=== PATIENT | female | born 1940 | race Caucasian/White ===

== ENCOUNTER 2016-05-22 06:28 | Day surgery (SDC) | payer MEDICARE, BC ==
[~2016-05-22 06:28] MED LIST: DEXAMETHASONE SOD PHOSPHATE 10 MG/ML 1 ML VIAL IV ONE; HEPARIN SODIUM,PORCINE 5,000 UNIT/ML 1 ML VIAL SQ ONE; LACTATED RINGERS 1,000 ML IV SCH; ceFAZolin 2 GM in SODIUM CHLORIDE 0.9% 100 ML IVPB ONE
[2016-05-22 07:12] LABS: Glucose,Whole Blood 219 mg/dL (75-99)
[2016-05-22] MEDS ORDERED: BUPIVACAIN-EPI 0.25%-1:200,000 30 ML VIAL SQ ONE ×2 (07:12→09:37)
[2016-05-22] MEDS ORDERED: LIDOCAINE 1% 20 ML VIAL (10MG/ML) FOR IV START INTRADERMA ONE (07:14)
[2016-05-22] MEDS: ONDANSETRON 4 MG/2 ML VIAL IVP ONE ×2 (07:14→10:16)
[2016-05-22 07:22] LABS: Prothrombin Time 10.6 sec (9.0-12.0)
[2016-05-22] MEDS ORDERED: INSULIN LISPRO (humaLOG) 300 UNIT/3 ML VIAL SQ ONE ×3 (07:40→13:56)
[2016-05-22] MEDS ORDERED: KETOROLAC 30 MG/ML 1 ML VIAL ONE (09:21)
[2016-05-22] MEDS ORDERED: HYDROmorphone (PF) 1 MG/ML ONE (09:21)
[2016-05-22] MEDS ORDERED: MIDAZOLAM 2 MG/2 ML VIAL ONE (09:21)
[2016-05-22] MEDS ORDERED: LIDOCAINE 1% INJ 10MG/ML (20 ML MDV) ONE (09:21)
[2016-05-22] MEDS ORDERED: PROPOFOL 10 MG/ML 20 ML VIAL IV ONE (09:21)
[2016-05-22] MEDS ORDERED: SUCCINYLCHOLINE CHLORIDE 100 MG/5 ML SYR IV ONE (09:21)
[2016-05-22] MEDS ORDERED: ROCURONIUM BROMIDE 10 MG/ML 10 ML VIAL IV ONE (09:21)
[2016-05-22] MEDS ORDERED: fentaNYL (PF) 50 MCG/ML 2 ML AMP ONE (09:21)
--- NOTE | 2016-05-22 09:23 | P.GSHP ---
History of Present Illness H&P Date: 05/22/16 Chief Complaint: Right upper quadrant pain Cyst 76-year-old female referred from Dr. Wislon. Patient complaints of right quadrant pain. Her recent HIDA scan shows abnormal ejection fraction 80% consistent with biliary hyperkinesia. She presents today for laparoscopic cholecystectomy. 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 Hx. cardiac arrest 4 yrs ago at [facility]- here with lung infection. CVA - pt unsure of cause - denies residual effects of cva. Hx Factor V. - on warfarin. Gout History of Any Multi-Drug Resistant Organisms: None Reported Past Surgical History: Hysterectomy Additional Past Surgical History / Comment(s): Nasal surgery Past Anesthesia/Blood Transfusion Reactions: Motion Sickness Past Psychological History: No Psychological Hx Reported Smoking Status: Former smoker Past Alcohol Use History: None Reported, Occasional Additional Past Alcohol Use History / Comment(s): QUIT SMOKING IN 2002, 50 YRS, 2PPD. Past Drug Use History: None Reported - Past Family History Father Additional Family Medical History / Comment(s): Hx. diabetes, cardiac, -father, mom-cancer, mothers extended family factor A Medications and Allergies Home Medications Medication Instructions Recorded Confirmed Type Febuxostat [Uloric] 40 mg PO HS 01/12/14 05/22/16 History Levimir 34 units SQ HS 01/12/14 05/22/16 History Metoprolol Succinate (ER) [Toprol 100 mg PO HS 01/12/14 05/22/16 History XL] Olmesartan/Amlodipin/Hcthiazid 1 tab PO HS 01/12/14 05/22/16 History [Tribenzor 20-5-12.5 mg Tablet] Simvastatin [Zocor] 40 mg PO HS 01/12/14 05/22/16 History Insulin Lispro [humaLOG Kwikpen] 16 units SQ TID-W/MEALS 06/30/14 05/22/16 History Warfarin Sodium [Coumadin] 3 mg PO DAILY 11/15/15 05/22/16 History Rituxan Dose Unknown 1 dose IV Q120D PRN 03/31/16 05/22/16 History Enoxaparin [Lovenox] 40 mg SQ DAILY 05/22/16 05/22/16 History Allergies Allergy/AdvReac Type Severity Reaction Status Date / Time codeine Allergy Severe Unknown Verified 05/22/16 07:12 levofloxacin [From Levaquin] Allergy Severe Rash/Hives Verified 05/22/16 07:12 metronidazole [From Flagyl] Allergy Severe Anaphylaxis Verified 05/22/16 07:12 diphenoxylate [From Lomotil] Allergy Diarrhea Verified 05/22/16 07:12 Surgical - Exam Vital Signs Temp Pulse Resp BP Pulse Ox 97.9 F 69 18 140/78 96 05/22/16 07:09 05/22/16 07:09 05/22/16 07:09 05/22/16 07:09 05/22/16 07:09 - General well developed, no distress - Eyes PERRL - ENT normal pinna - Neck no masses - Respiratory normal expansion - Cardiovascular Rhythm: regular - Abdomen Abdomen: soft, non tender Results - Labs Abnormal Lab Results - Last 24 Hours (Table) 05/22/16 Range/Units 06:56 POC Glucose (mg/dL) 219 H (75-99) mg/dL Assessment and Plan Plan: Biliary hyperkinesia Chronic cholecystitis We'll perform laparoscopic cholecystectomy.
--- NOTE | 2016-05-22 09:59 | P.OP ---
Date of Procedure: 05/22/16 Preoperative Diagnosis: Cholecystitis Postoperative Diagnosis: Cholecystitis Procedure(s) Performed: Laparoscopic cholecystectomy Anesthesia: MORRIS Surgeon: Doron Alvarez Estimated Blood Loss (ml): 5 Pathology: other (Gallbladder) Condition: stable Disposition: PACU Description of Procedure: MThe patient was placed on the operating table. The patient received a general endotracheal tube anesthesia. The patients abdomen was prepped and draped in the usual sterile fashion. Through an infraumbilical stab incision , the fascia of the anterior abdominal wall was grasped with a pair of Kochers and then the Veress needle was placed in the peritoneal cavity. Position of the Veress needle was confirmed with positive drop test. The abdomen was then insufflated. After adequate insufflation, the 10 mm trocar was placed in the peritoneal cavity. Following this the laparoscope was placed in the peritoneal cavity. The patient was placed in the head-up, right side up position and then a 5 mm trocar was placed in the right lateral and right subcostal position under direct visualization. A 8 mm trocar was placed in the epigastric position. The gallbladder was grasped in the fundus and infundibulum. Traction on the gallbladder was placed in the lateral and the cephalad positions. The triangle of Calot was visualized.. The cystic duct was bluntly dissected until the union of the cystic duct and common bile duct was seen. The cystic duct was then divided and sealed with the Harmonic scissors. A PDS Endoloop was then placed throughout the cystic duct stump. The cystic artery divided and sealed with the Harmonic scissors. The gallbladder was then removed from the liver bed using Harmonic scissors. The gallbladder was then extracted through the epigastric port site. Operative field was checked for any bleeding spots and Harmonic scissors was used to coagulate the liver bed. The abdomen was irrigated. The trocars were removed. The skin was closed using interrupted 3-0 Vicryl suture. Dermabond dressing were applied. The patient tolerated the procedure well.earl
[2016-05-22 10:10] VITALS: TEMP 97.2
[2016-05-22] MEDS: HYDROmorphone 1 MG/ML 1 ML SYRINGE IVP PRN ×2 (10:16→10:23)
[2016-05-22 10:29] LABS: Glucose,Whole Blood 227 mg/dL (75-99)
[2016-05-22] MEDS ORDERED: diphenhydrAMINE 50 MG/ML 1 ML VIAL IVP ONE (10:30)
[2016-05-22 10:33] VITALS: RESP 16
[2016-05-22] MEDS ORDERED: HYDROcodone/APAP 7.5-325MG 1 EACH TAB PO ONE (11:48)
[2016-05-22 13:44] VITALS: BP 139/72; PULSE 84
[2016-05-22 13:49] LABS: Glucose,Whole Blood 302 mg/dL (75-99)
== END 2016-05-22 14:32 | disposition home or self-care (01) ==
LOC: OR 06:28
PROVIDERS: ATTEND Surgery
DX: K81.1 Chronic cholecystitis (principal); E11.9 Type 2 diabetes mellitus without complications; E78.5 Hyperlipidemia, unspecified; I10 Essential (primary) hypertension; M06.9 Rheumatoid arthritis, unspecified; Z79.01 Long term (current) use of anticoagulants; Z79.4 Long term (current) use of insulin; Z79.899 Other long term (current) drug therapy; Z88.1 Allergy status to other antibiotic agents; Z88.5 Allergy status to narcotic agent; Z88.8 Allergy status to other drugs, medicaments and biological substances; Z86.73 Personal history of transient ischemic attack (TIA), and cerebral infarction without residual deficits; I25.2 Old myocardial infarction; Z87.891 Personal history of nicotine dependence
CPT/HCPCS: 88304; 85610; 47562; J2250; J1200; J1644; J1100; J0690; J2405; J2001; J3010; J1885; J1170; J0330; J2704

== ENCOUNTER 2016-07-08 22:13 | Emergency (ER) | payer MEDICARE, BC ==
[2016-07-08] MEDS ORDERED: SODIUM CHLORIDE 0.9% 500 ML IV STA (23:18)
[2016-07-08] MEDS ORDERED: SODIUM CHLORIDE 0.9% 1,000 ML IV STA (23:18)
[2016-07-08] MEDS ORDERED: METOCLOPRAMIDE 5 MG/ML 2 ML VIAL IVP STA (23:18)
[2016-07-08] MEDS ORDERED: KETOROLAC 30 MG/ML 1 ML VIAL IVP STA (23:21)
[2016-07-08] MEDS ORDERED: MAGNESIUM SULFATE-D5W PMX 1 GM in DEXTROSE/WATER 1 100ML.BAG IVPB ONE (23:21)
[2016-07-08] MEDS ORDERED: LABETALOL SYRINGE 5 MG/ML IVP STA (23:21)
[2016-07-09 00:06] LABS: Basophils % (A) 1 %; CH 30.4; CHCM 33.8; Eosinophils # (A) 0.3 k/uL (0-0.7); Eosinophils % (A) 3 %; HCT 39.8 % (34.0-46.0); HDW 3.23; HGB 13.3 gm/dL (11.4-16.0); Luc # (Auto) 0.21; Luc % (Auto) 2; Lymphocytes # (A) 2.5 k/uL (1.0-4.8); Lymphocytes % (A) 27 %; MCH 30.2 pg (25.0-35.0); MCHC 33.5 g/dL (31.0-37.0); MCV 90.2 fL (80.0-100.0); Mean Platelet Volume 7.2; Monocytes # (A) 0.6 k/uL (0-1.0); Monocytes % (A) 6 %; Neutrophils # (A) 5.5 k/uL (1.3-7.7); Neutrophils % (A) 60 %; RBC 4.41 m/uL (3.80-5.40); RDW 15.1 % (11.5-15.5); WBC 9.1 k/uL (3.8-10.6); WBC (Perox) 9.24
[2016-07-09 00:17] LABS: ALT 38 U/L (9-52); AST 28 U/L (14-36); Alkaline Phosphatase 93 U/L (38-126); Anion Gap 10 mmol/L; Blood Urea Nitrogen 18 mg/dL (7-17); Calcium 9.4 mg/dL (8.4-10.2); Carbon Dioxide 25 mmol/L (22-30); Chloride 106 mmol/L (98-107); Glucose 135 mg/dL (74-99); INR 1.6 (<1.1); Non-African American GFR(MDRD) >60 (>60 ml/min/1.73 sqM); Partial Thromboplastin Time 26.5 sec (22.0-30.0); Potassium 4.1 mmol/L (3.5-5.1); Prothrombin Time 15.9 sec (9.0-12.0); Sodium 141 mmol/L (137-145); Total Bilirubin 0.7 mg/dL (0.2-1.3); Total Protein 6.5 g/dL (6.3-8.2)
[2016-07-09 00:23] VITALS: RESP 18
[2016-07-09 00:42] LABS: Creatine Kinase 45 U/L (30-135)
--- NOTE | 2016-07-09 00:47 | CT ---
EXAM: CT Head Without Intravenous Contrast. CLINICAL HISTORY: Reason: sob TECHNIQUE: Axial computed tomography images of the head/brain without intravenous contrast. CTDI is 60.3 mGy and DLP is 1108 mGy-cm Coronal and sagittal reformatted images were created and reviewed. COMPARISON: No relevant prior studies available. FINDINGS: Brain: Mild chronic small vessel ischemic change. No mass effect or edema. No evolving territorial infarction. No hemorrhage. Ventricles: Unremarkable. No ventriculomegaly. Bones/joints: Unremarkable. No acute fracture. Soft tissues: Unremarkable. Sinuses: Evidence of previous right maxillary antrostomy. Mild nodular mucosal thickening of the ethmoid air cells and right maxillary sinus which may suggest polyps Mastoid air cells: Unremarkable as visualized. No mastoid effusion. IMPRESSION: Mild chronic small vessel ischemic change. No acute intracranial abnormality.
--- NOTE | 2016-07-09 00:53 | XR ---
EXAM: XR Chest, 2 Views. CLINICAL HISTORY: Reason: sob TECHNIQUE: Frontal and lateral views of the chest. COMPARISON: Chest x-ray dated 11/15/15 FINDINGS: Lungs: Mild pulmonary vascular prominence. No consolidation. Pleural space: Unremarkable. No pneumothorax. Heart: Stable mild cardiomegaly. Mediastinum: Mild atherosclerosis of the aorta. No abnormal be subtle lighting. Bones/joints: Unremarkable. IMPRESSION: Mild pulmonary vascular prominence. Stable mild cardiomegaly.
[2016-07-09 00:55] LABS: Creatine Kinase MB 0.2 ng/mL (0.0-2.4); Troponin I <0.012 ng/mL (0.000-0.034)
[2016-07-09 01:05] LABS: Erythrocyte Sedimentation Rate 21 mm/hr (0-20)
--- NOTE | 2016-07-09 01:55 | ED ---
General Adult HPI - General Chief complaint: Syncope Stated complaint: High BP,headache,syncope Time Seen by Provider: 07/08/16 23:09 Source: patient Mode of arrival: wheelchair Limitations: no limitations - History of Present Illness Initial comments: This 76-year-old white female presents complaining of a diffuse headache. She states that it came on fairly suddenly yesterday. It seems somewhat worse on the right side and over her latter-day. She also complains of some nausea but no vomiting. She states that it feels like her eyes are burning. She has had occasional palpitations. She relates that her blood pressure has been somewhat out of control recently. She was on a couple different medications but was taken off of them and is now only taken metoprolol 100 mg per day. She states that she cannot take any pain medications because she gets nauseated. She denies any chest pain but has had occasional shortness of breath. She denies any history of headaches. She states that she did feel somewhat dizzy to the point of presyncope but did not actually pass out. No other complaints or modifying factors. - Related Data Home Medications Medication Instructions Recorded Confirmed Febuxostat [Uloric] 40 mg PO HS 01/12/14 07/08/16 Levimir 32 units SQ HS 01/12/14 07/08/16 Metoprolol Succinate (ER) [Toprol 100 mg PO HS 01/12/14 07/08/16 XL] Simvastatin [Zocor] 40 mg PO HS 01/12/14 07/08/16 Insulin Lispro [humaLOG Kwikpen] 14 units SQ TID-W/MEALS 06/30/14 07/08/16 Rituxan Dose Unknown 1 dose IV Q120D PRN 03/31/16 07/08/16 Cetirizine HCl/Pseudoephedrine 1 tab PO Q12H PRN 07/08/16 07/08/16 [Zyrtec-D Tablet] Warfarin Sodium [Coumadin] 4 mg PO HS 07/08/16 07/08/16 Previous Rx's Medication Instructions Recorded Butalbital/Aspirin/Caffeine 1 - 2 cap PO Q4HR PRN #20 cap 07/09/16 [Fiorinal 50-325-40 MG] Metoclopramide [Reglan] 10 mg PO Q6H PRN #20 tab 07/09/16 Metoprolol Succinate [Toprol XL] 200 mg PO Q24H #30 tab.er.24h 07/09/16 Allergies Allergy/AdvReac Type Severity Reaction Status Date / Time codeine Allergy Severe Unknown Verified 07/08/16 22:39 levofloxacin [From Levaquin] Allergy Severe Rash/Hives Verified 07/08/16 22:39 metronidazole [From Flagyl] Allergy Severe Anaphylaxis Verified 07/08/16 22:39 acetaminophen [From [place]] Allergy Rash/Hives Verified 07/08/16 22:39 diphenoxylate [From Lomotil] Allergy Diarrhea Verified 07/08/16 22:39 hydrocodone [From [place]] Allergy Rash/Hives Verified 07/08/16 22:39 Review of Systems ROS Statement: Those systems with pertinent positive or pertinent negative responses have been documented in the HPI. ROS Other: All systems not noted in ROS Statement are negative. 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 Hx. cardiac arrest 4 yrs ago at [facility]- here with lung infection. CVA - pt unsure of cause - denies residual effects of cva. Hx Factor V. - on warfarin. Gout History of Any Multi-Drug Resistant Organisms: None Reported Past Surgical History: Hysterectomy Additional Past Surgical History / Comment(s): Nasal surgery Past Anesthesia/Blood Transfusion Reactions: Motion Sickness Past Psychological History: No Psychological Hx Reported Smoking Status: Former smoker Past Alcohol Use History: None Reported, Occasional Additional Past Alcohol Use History / Comment(s): QUIT SMOKING IN 2002, 50 YRS, 2PPD. Past Drug Use History: None Reported - Past Family History Father Additional Family Medical History / Comment(s): Hx. diabetes, cardiac, -father, mom-cancer, mothers extended family factor A General Exam - General Exam Comments Initial Comments: GENERAL: The patient is well nourished and well hydrated. VITAL SIGNS: Heart rate, blood pressure, respiratory rate reviewed as recorded in nurse's notes. EYES: Pupils are round and reactive. Extraocular movements are intact. No conjunctival / lid redness or swelling. ENT: No external evidence of injury, swelling, or ecchymosis. Airway is patent. Throat is clear. There is some mild tenderness upon palpation of the right scalp in the right latter-day. There is no swelling noted. NECK: Nontender. No swelling or evidence of injury. No subcutaneous emphysema. Trachea is midline. No thyroid mass. HEART: Regular rate and rhythm. Good peripheral pulses. LUNGS/CHEST: Breath sounds clear and equal bilaterally. No rales, rhonchi, or wheezes. No ecchymosis, subcutaneous emphysema, or tenderness. ABDOMEN: Abdomen soft without tenderness. No palpable masses or organomegaly. No peritoneal signs. No abdominal wall swelling or ecchymosis. EXTREMITIES: No extremity tenderness. Normal muscle tone and function. No thoracolumbar tenderness. NEUROLOGIC: Sensation is grossly intact. Cranial nerve exam reveals face is symmetrical, tongue is midline, speech is clear. SKIN: No abrasions or ecchymosis is noted. No induration or masses noted. PSYCHIATRIC: Alert and oriented. Appropriate behavior and judgment. Limitations: no limitations Course Vital Signs 07/08/16 07/09/16 22:19 00:22 Temperature 98.4 F Pulse Rate 89 80 Respiratory 20 18 Rate Blood Pressure 200/93 162/66 O2 Sat by Pulse 94 L 96 Oximetry Medical Decision Making - Medical Decision Making The patient was seen and examined. All diagnostics were reviewed. The EKG shows a normal sinus rhythm at a rate of 89. There is no acute ST-T wave changes noted. The W[place] interval is 170, QRS duration is 74, and QTC intervals 501. The patient had a chest x-ray which showed possible mild pulmonary vascular prominence but this is not appreciated upon my review. The computed tomography scan of the brain did not show any acute processes. The sed rate was only minimally elevated, INR is minimally subtherapeutic but she states that she missed her dose tonight. Her BNP is slightly elevated. The blood pressure was significantly elevated and she did receive some labetalol and this did come down nicely. She also received some magnesium Toradol and Reglan. Her headache is resolved. Showing much improved on recheck. Overall it is felt as though she is stable for discharge. Is felt as though she may benefit from increase of her metoprolol and this will be prescribed. Is also felt as though she may benefit from some antinausea medication and Fioricet for headaches. She is agreeable to this plan. Return parameters are discussed and she lives in no distress. - Lab Data Result diagrams: 07/08/16 23:45 07/08/16 23:45 Lab Results 07/08/16 07/08/16 07/08/16 Range/Units 23:45 23:45 23:45 WBC 9.1 (3.8-10.6) k/uL RBC 4.41 (3.80-5.40) m/uL Hgb 13.3 (11.4-16.0) gm/dL Hct 39.8 (34.0-46.0) % MCV 90.2 (80.0-100.0) fL MCH 30.2 (25.0-35.0) pg MCHC 33.5 (31.0-37.0) g/dL RDW 15.1 (11.5-15.5) % Plt Count 197 (150-450) k/uL Neutrophils % 60 % Lymphocytes % 27 % Monocytes % 6 % Eosinophils % 3 % Basophils % 1 % Neutrophils # 5.5 (1.3-7.7) k/uL Lymphocytes # 2.5 (1.0-4.8) k/uL Monocytes # 0.6 (0-1.0) k/uL Eosinophils # 0.3 (0-0.7) k/uL Basophils # 0.0 (0-0.2) k/uL ESR 21 H (0-20) mm/hr PT (9.0-12.0) sec INR (<1.1) APTT (22.0-30.0) sec Sodium 141 (137-145) mmol/L Potassium 4.1 (3.5-5.1) mmol/L Chloride 106 (98-107) mmol/L Carbon Dioxide 25 (22-30) mmol/L Anion Gap 10 mmol/L BUN 18 H (7-17) mg/dL Creatinine 0.90 (0.52-1.04) mg/dL Est GFR (MDRD) Af Amer >60 (>60 ml/min/1.73 sqM) Est GFR (MDRD) Non-Af >60 (>60 ml/min/1.73 sqM) Glucose 135 H (74-99) mg/dL Calcium 9.4 (8.4-10.2) mg/dL Total Bilirubin 0.7 (0.2-1.3) mg/dL AST 28 (14-36) U/L ALT 38 (9-52) U/L Alkaline Phosphatase 93 (38-126) U/L Total Creatine Kinase 45 (30-135) U/L CK-MB (CK-2) 0.2 (0.0-2.4) ng/mL CK-MB (CK-2) Rel Index 0.4 Troponin I <0.012 (0.000-0.034) ng/mL NT-Pro-B Natriuret Pep pg/mL Total Protein 6.5 (6.3-8.2) g/dL Albumin 4.0 (3.5-5.0) g/dL 07/08/16 07/08/16 Range/Units 23:45 23:45 WBC (3.8-10.6) k/uL RBC (3.80-5.40) m/uL Hgb (11.4-16.0) gm/dL Hct (34.0-46.0) % MCV (80.0-100.0) fL MCH (25.0-35.0) pg MCHC (31.0-37.0) g/dL RDW (11.5-15.5) % Plt Count (150-450) k/uL Neutrophils % % Lymphocytes % % Monocytes % % Eosinophils % % Basophils % % Neutrophils # (1.3-7.7) k/uL Lymphocytes # (1.0-4.8) k/uL Monocytes # (0-1.0) k/uL Eosinophils # (0-0.7) k/uL Basophils # (0-0.2) k/uL ESR (0-20) mm/hr PT 15.9 H (9.0-12.0) sec INR 1.6 (<1.1) APTT 26.5 (22.0-30.0) sec Sodium (137-145) mmol/L Potassium (3.5-5.1) mmol/L Chloride (98-107) mmol/L Carbon Dioxide (22-30) mmol/L Anion Gap mmol/L BUN (7-17) mg/dL Creatinine (0.52-1.04) mg/dL Est GFR (MDRD) Af Amer (>60 ml/min/1.73 sqM) Est GFR (MDRD) Non-Af (>60 ml/min/1.73 sqM) Glucose (74-99) mg/dL Calcium (8.4-10.2) mg/dL Total Bilirubin (0.2-1.3) mg/dL AST (14-36) U/L ALT (9-52) U/L Alkaline Phosphatase (38-126) U/L Total Creatine Kinase (30-135) U/L CK-MB (CK-2) (0.0-2.4) ng/mL CK-MB (CK-2) Rel Index Troponin I (0.000-0.034) ng/mL NT-Pro-B Natriuret Pep 577 pg/mL Total Protein (6.3-8.2) g/dL Albumin (3.5-5.0) g/dL Disposition Clinical Impression: Headache, Nausea, Hypertensive urgency Disposition: HOME SELF-CARE Condition: Good Prescriptions: Butalbital/Aspirin/Caffeine [Fiorinal 50-325-40 MG] 1 - 2 cap PO Q4HR PRN #20 cap PRN Reason: Headache Metoclopramide [Reglan] 10 mg PO Q6H PRN #20 tab PRN Reason: Nausea Metoprolol Succinate [Toprol XL] 200 mg PO Q24H #30 tab.er.24h Referrals: Thai Wilson MD [Primary Care Provider] - 1-2 days Time of Disposition: 01:55
--- NOTE | 2016-07-09 02:02 | ED ---
Medical Decision Making - Lab Data Result diagrams: 07/08/16 23:45 07/08/16 23:45 Lab Results 07/08/16 07/08/16 07/08/16 Range/Units 23:45 23:45 23:45 WBC 9.1 (3.8-10.6) k/uL RBC 4.41 (3.80-5.40) m/uL Hgb 13.3 (11.4-16.0) gm/dL Hct 39.8 (34.0-46.0) % MCV 90.2 (80.0-100.0) fL MCH 30.2 (25.0-35.0) pg MCHC 33.5 (31.0-37.0) g/dL RDW 15.1 (11.5-15.5) % Plt Count 197 (150-450) k/uL Neutrophils % 60 % Lymphocytes % 27 % Monocytes % 6 % Eosinophils % 3 % Basophils % 1 % Neutrophils # 5.5 (1.3-7.7) k/uL Lymphocytes # 2.5 (1.0-4.8) k/uL Monocytes # 0.6 (0-1.0) k/uL Eosinophils # 0.3 (0-0.7) k/uL Basophils # 0.0 (0-0.2) k/uL ESR 21 H (0-20) mm/hr PT (9.0-12.0) sec INR (<1.1) APTT (22.0-30.0) sec Sodium 141 (137-145) mmol/L Potassium 4.1 (3.5-5.1) mmol/L Chloride 106 (98-107) mmol/L Carbon Dioxide 25 (22-30) mmol/L Anion Gap 10 mmol/L BUN 18 H (7-17) mg/dL Creatinine 0.90 (0.52-1.04) mg/dL Est GFR (MDRD) Af Amer >60 (>60 ml/min/1.73 sqM) Est GFR (MDRD) Non-Af >60 (>60 ml/min/1.73 sqM) Glucose 135 H (74-99) mg/dL Calcium 9.4 (8.4-10.2) mg/dL Total Bilirubin 0.7 (0.2-1.3) mg/dL AST 28 (14-36) U/L ALT 38 (9-52) U/L Alkaline Phosphatase 93 (38-126) U/L Total Creatine Kinase 45 (30-135) U/L CK-MB (CK-2) 0.2 (0.0-2.4) ng/mL CK-MB (CK-2) Rel Index 0.4 Troponin I <0.012 (0.000-0.034) ng/mL NT-Pro-B Natriuret Pep pg/mL Total Protein 6.5 (6.3-8.2) g/dL Albumin 4.0 (3.5-5.0) g/dL 07/08/16 07/08/16 Range/Units 23:45 23:45 WBC (3.8-10.6) k/uL RBC (3.80-5.40) m/uL Hgb (11.4-16.0) gm/dL Hct (34.0-46.0) % MCV (80.0-100.0) fL MCH (25.0-35.0) pg MCHC (31.0-37.0) g/dL RDW (11.5-15.5) % Plt Count (150-450) k/uL Neutrophils % % Lymphocytes % % Monocytes % % Eosinophils % % Basophils % % Neutrophils # (1.3-7.7) k/uL Lymphocytes # (1.0-4.8) k/uL Monocytes # (0-1.0) k/uL Eosinophils # (0-0.7) k/uL Basophils # (0-0.2) k/uL ESR (0-20) mm/hr PT 15.9 H (9.0-12.0) sec INR 1.6 (<1.1) APTT 26.5 (22.0-30.0) sec Sodium (137-145) mmol/L Potassium (3.5-5.1) mmol/L Chloride (98-107) mmol/L Carbon Dioxide (22-30) mmol/L Anion Gap mmol/L BUN (7-17) mg/dL Creatinine (0.52-1.04) mg/dL Est GFR (MDRD) Af Amer (>60 ml/min/1.73 sqM) Est GFR (MDRD) Non-Af (>60 ml/min/1.73 sqM) Glucose (74-99) mg/dL Calcium (8.4-10.2) mg/dL Total Bilirubin (0.2-1.3) mg/dL AST (14-36) U/L ALT (9-52) U/L Alkaline Phosphatase (38-126) U/L Total Creatine Kinase (30-135) U/L CK-MB (CK-2) (0.0-2.4) ng/mL CK-MB (CK-2) Rel Index Troponin I (0.000-0.034) ng/mL NT-Pro-B Natriuret Pep 577 pg/mL Total Protein (6.3-8.2) g/dL Albumin (3.5-5.0) g/dL Disposition Clinical Impression: Headache, Nausea, Hypertensive urgency Disposition: HOME SELF-CARE Condition: Good Instructions: Acute Headache (ED), Hypertension (ED) Prescriptions: Butalbital/Aspirin/Caffeine [Fiorinal 50-325-40 MG] 1 - 2 cap PO Q4HR PRN #20 cap PRN Reason: Headache Metoclopramide [Reglan] 10 mg PO Q6H PRN #20 tab PRN Reason: Nausea Metoprolol Succinate [Toprol XL] 200 mg PO Q24H #30 tab.er.24h Referrals: Thai Wilson MD [Primary Care Provider] - 1-2 days
[2016-07-09 02:23] VITALS: BP 158/68; PULSE 72; TEMP 97.1
== END 2016-07-09 02:21 | disposition home or self-care (01) ==
LOC: EC 22:13
DX: R51 Headache (principal); I16.0 Hypertensive urgency; Z79.899 Other long term (current) drug therapy; E11.9 Type 2 diabetes mellitus without complications; E78.5 Hyperlipidemia, unspecified; Z79.01 Long term (current) use of anticoagulants; Z86.73 Personal history of transient ischemic attack (TIA), and cerebral infarction without residual deficits; Z87.891 Personal history of nicotine dependence; Z88.1 Allergy status to other antibiotic agents; Z88.8 Allergy status to other drugs, medicaments and biological substances; Z88.5 Allergy status to narcotic agent
CPT/HCPCS: 36415; 93005; 83880; 80053; 85652; 82550; 82553; 84484; 85025; 85610; 85730; 71020; 70450; 99284; 96375; 96365 ×2; 96361; J2765; J1885; J3475

== ENCOUNTER → 2016-10-03 | Outpatient (CLI) | payer MEDICARE, BC ==
--- NOTE | 2016-10-03 12:05 | CT ---
EXAMINATION TYPE: CT pelvis wo con DATE OF EXAM: 10/03/2016 COMPARISON: NONE HISTORY: Pelvic pain CT DLP: 635.60 mGycm Automated exposure control for dose reduction was used. FINDINGS: Diverticulosis of the colon noted. The uterus is not seen correlate for previous hysterectomy. No juan e fluid. Atherosclerotic change of the vasculature. Arthropathy of the hips. Herniation pit noted within the right femoral neck. No destructive osseous c hanges. IMPRESSION: NO ACUTE PROCESS.
== END ==
LOC: RADCTMAIN 11:31
PROVIDERS: ATTEND Family Medicine
DX: R10.2 Pelvic and perineal pain (principal)
CPT/HCPCS: 72192

== ENCOUNTER 2016-11-08 23:17 | Observation (INO) | payer MEDICARE, BC ==
[2016-11-09] MEDS ORDERED: METOCLOPRAMIDE 5 MG/ML 2 ML VIAL IVP STA (00:09)
[2016-11-09] MEDS ORDERED: SODIUM CHLORIDE 0.9% 2,000 ML IV STA (00:09)
--- NOTE | 2016-11-09 00:15 | ED ---
General Adult HPI - General Chief complaint: Nausea/Vomiting/Diarrhea Stated complaint: diarrhea; weakness Time Seen by Provider: 11/09/16 00:03 Source: patient, RN notes reviewed Mode of arrival: wheelchair Limitations: no limitations - History of Present Illness Initial comments: 76 yo female presents to the ER with cc diarrhea x 1 month. Patient states that she had chronic diarrhea from age 21 to age 66. Then she found some sort of medication to take and it got rid of her diarrhea for about 10 years. He states a month ago this diarrhea has returned. Patient states she just keeps going. Patient states she's been taking Gas-X and Imodium with no improvement to her symptoms. States she would to her doctor and I'll do stool testing came back negative. He tried started on medication which she is unable to take it due to the fact that she did not have a gallbladder. Patient states she is here because she is just feeling very tired and weak and she just feels like she needs some hydration. Patient states she's been to every one to try to get rid of the diarrhea and no one has been able to get rid of it yet. Patient states that she simply needs some help to get her hydrated at this time. Patient denies any recent fever, chills, shortness of breath, chest pain, back pain, abdominal pain, nausea vomiting, numbness or tingling, dysuria or hematuria, constipation, headaches or visual changes, or any other current symptoms. - Related Data Home Medications Medication Instructions Recorded Confirmed Febuxostat [Uloric] 40 mg PO HS 01/12/14 11/08/16 Levimir 32 units SQ HS 01/12/14 11/08/16 Metoprolol Succinate (ER) [Toprol 100 mg PO HS 01/12/14 11/08/16 XL] Simvastatin [Zocor] 40 mg PO HS 01/12/14 11/08/16 Insulin Lispro [humaLOG Kwikpen] 14 units SQ TID-W/MEALS 06/30/14 11/08/16 Rituxan Dose Unknown 1 dose IV Q120D PRN 03/31/16 11/08/16 Warfarin Sodium [Coumadin] 4 mg PO HS 07/08/16 11/08/16 Previous Rx's Medication Instructions Recorded Butalbital/Aspirin/Caffeine 1 - 2 cap PO Q4HR PRN #20 cap 07/09/16 [Fiorinal 50-325-40 MG] Metoprolol Succinate [Toprol XL] 200 mg PO Q24H #30 tab.er.24h 07/09/16 Allergies Allergy/AdvReac Type Severity Reaction Status Date / Time codeine Allergy Severe Unknown Verified 11/08/16 23:37 levofloxacin [From Levaquin] Allergy Severe Rash/Hives Verified 11/08/16 23:37 metronidazole [From Flagyl] Allergy Severe Anaphylaxis Verified 11/08/16 23:37 acetaminophen [From [place]] Allergy Rash/Hives Verified 11/08/16 23:37 diphenoxylate [From Lomotil] Allergy Diarrhea Verified 11/08/16 23:37 hydrocodone [From [place]] Allergy Rash/Hives Verified 11/08/16 23:37 Review of Systems ROS Statement: Those systems with pertinent positive or pertinent negative responses have been documented in the HPI. ROS Other: All systems not noted in ROS Statement are negative. 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 Hx. cardiac arrest 4 yrs ago at [facility]- here with lung infection. CVA - pt unsure of cause - denies residual effects of cva. Hx Factor V. - on warfarin. Gout History of Any Multi-Drug Resistant Organisms: None Reported Past Surgical History: Cholecystectomy, Hysterectomy Additional Past Surgical History / Comment(s): Nasal surgery Past Anesthesia/Blood Transfusion Reactions: Motion Sickness Past Psychological History: No Psychological Hx Reported Smoking Status: Former smoker Past Alcohol Use History: None Reported, Occasional Past Drug Use History: None Reported - Past Family History Father Additional Family Medical History / Comment(s): Hx. diabetes, cardiac, -father, mom-cancer, mothers extended family factor A General Exam - General Exam Comments Initial Comments: General: The patient is awake and alert, in no distress, and does not appear acutely ill. Eye: Pupils are equal, round and reactive to light, extra-ocular movements are intact; there is normal conjunctiva bilaterally. No signs of icterus. Ears, nose, mouth and throat: There are moist mucous membranes and no oral lesions. Neck: The neck is supple, there is no tenderness. Cardiovascular: There is a regular rate and rhythm. No murmur, rub or gallop is appreciated. Respiratory: Lungs are clear to auscultation, respirations are non-labored, breath sounds are equal. No wheezes, stridor, rales, or rhonchi. Gastrointestinal: Soft, non-distended, non-tender abdomen without masses or organomegaly noted. There is no rebound or guarding present. No CVA tenderness. Bowel sounds are unremarkable. Back: There is no tenderness to palpation in the midline. There is no obvious deformity. No rashes noted. Musculoskeletal: Normal ROM, no tenderness, There is no pedal edema. There is no calf tenderness or swelling. Sensation intact. Pulses equal bilaterally 2+. Neurological: CN II-XII intact, There are no obvious motor or sensory deficits. Coordination appears grossly intact. Speech is normal. Skin: Skin is warm and dry and no rashes or lesions are noted. Psychiatric: Cooperative, appropriate mood & affect, normal judgment. Limitations: no limitations Course Vital Signs 11/08/16 11/09/16 11/09/16 23:35 02:26 03:12 Temperature 98.3 F Pulse Rate 78 87 Pulse Rate [ 80 Sitting] Pulse Rate [ 84 Standing] Pulse Rate [ 81 Supine] Respiratory 16 18 Rate Blood Pressure 180/70 154/66 Blood Pressure 157/71 [Sitting] Blood Pressure 152/68 [Standing] Blood Pressure 154/67 [Supine] O2 Sat by Pulse 96 96 Oximetry Medical Decision Making - Medical Decision Making 76-year-old female presents to the emergency department with a chief complaint of diarrhea. At this time lab work is reviewed that do show hypokalemia as well as dehydration. We will replace the patient's potassium. She is having some lightheadedness and dizziness upon standing. At this time we will admit the patient we are currently pending his her C. diff. Patient is in agreement with this plan all questions have been answered. - Lab Data Result diagrams: 11/09/16 00:20 11/09/16 00:20 Lab Results 11/09/16 11/09/16 11/09/16 Range/Units 00:20 00:20 00:20 WBC 8.8 (3.8-10.6) k/uL RBC 4.51 (3.80-5.40) m/uL Hgb 13.5 (11.4-16.0) gm/dL Hct 39.2 (34.0-46.0) % MCV 86.8 (80.0-100.0) fL MCH 29.9 (25.0-35.0) pg MCHC 34.5 (31.0-37.0) g/dL RDW 14.5 (11.5-15.5) % Plt Count 222 (150-450) k/uL Neutrophils % 72 % Lymphocytes % 21 % Monocytes % 5 % Eosinophils % 1 % Basophils % 0 % Neutrophils # 6.3 (1.3-7.7) k/uL Lymphocytes # 1.8 (1.0-4.8) k/uL Monocytes # 0.4 (0-1.0) k/uL Eosinophils # 0.1 (0-0.7) k/uL Basophils # 0.0 (0-0.2) k/uL PT 34.0 H (9.0-12.0) sec INR 3.5 H (<1.2) APTT 34.2 H (22.0-30.0) sec Sodium 137 (137-145) mmol/L Potassium 3.4 L (3.5-5.1) mmol/L Chloride 106 (98-107) mmol/L Carbon Dioxide 20 L (22-30) mmol/L Anion Gap 11 mmol/L BUN 20 H (7-17) mg/dL Creatinine 0.80 (0.52-1.04) mg/dL Est GFR (MDRD) Af Amer >60 (>60 ml/min/1.73 sqM) Est GFR (MDRD) Non-Af >60 (>60 ml/min/1.73 sqM) Glucose 160 H (74-99) mg/dL Calcium 8.9 (8.4-10.2) mg/dL Total Bilirubin 0.7 (0.2-1.3) mg/dL AST 26 (14-36) U/L ALT 41 (9-52) U/L Alkaline Phosphatase 97 (38-126) U/L Total Protein 6.2 L (6.3-8.2) g/dL Albumin 3.6 (3.5-5.0) g/dL Amylase <30 L (30-110) U/L Lipase 26 (23-300) U/L Disposition Clinical Impression: Dehydration, Diarrhea Disposition: ADMITTED IP TO THIS HOSP Condition: Stable Referrals: Thai Wilson MD [Primary Care Provider] - 1-2 days Time of Disposition: 03:02 Decision Date: 11/09/16 Decision Time: 03:02
[2016-11-09 00:34] LABS: Basophils % (A) 0 %; CH 29.7; CHCM 34.4; Eosinophils # (A) 0.1 k/uL (0-0.7); Eosinophils % (A) 1 %; HCT 39.2 % (34.0-46.0); HDW 3.12; HGB 13.5 gm/dL (11.4-16.0); Luc % (Auto) 1; Lymphocytes # (A) 1.8 k/uL (1.0-4.8); Lymphocytes % (A) 21 %; MCH 29.9 pg (25.0-35.0); MCHC 34.5 g/dL (31.0-37.0); MCV 86.8 fL (80.0-100.0); Mean Platelet Volume 7.3; Monocytes # (A) 0.4 k/uL (0-1.0); Monocytes % (A) 5 %; Neutrophils # (A) 6.3 k/uL (1.3-7.7); Neutrophils % (A) 72 %; RBC 4.51 m/uL (3.80-5.40); RDW 14.5 % (11.5-15.5); WBC 8.8 k/uL (3.8-10.6); WBC (Perox) 9.01
[2016-11-09 00:45] LABS: ALT 41 U/L (9-52); AST 26 U/L (14-36); Alkaline Phosphatase 97 U/L (38-126); Amylase <30 U/L (30-110); Anion Gap 11 mmol/L; Blood Urea Nitrogen 20 mg/dL (7-17); Calcium 8.9 mg/dL (8.4-10.2); Carbon Dioxide 20 mmol/L (22-30); Chloride 106 mmol/L (98-107); Glucose 160 mg/dL (74-99); Non-African American GFR(MDRD) >60 (>60 ml/min/1.73 sqM); Potassium 3.4 mmol/L (3.5-5.1); Sodium 137 mmol/L (137-145); Total Bilirubin 0.7 mg/dL (0.2-1.3); Total Protein 6.2 g/dL (6.3-8.2)
[2016-11-09 00:52] LABS: INR 3.5 (<1.2); Partial Thromboplastin Time 34.2 sec (22.0-30.0)
--- NOTE | 2016-11-09 02:41 | CT ---
EXAM: CT Abdomen and Pelvis Without Intravenous Contrast CLINICAL HISTORY: Nausea and diarrhea. Reason: Pain TECHNIQUE: Axial computed tomography images of the abdomen and pelvis without intravenous contrast. CTDI is 21.4 mGy and DLP is 1222.1 mGy-cm. This CT exam was performed using one or more of the following dose reduction techniques: automated exposure control, adjustment of the mA and/or kV according to patient size, and/or use of iterative reconstruction technique. COMPARISON: CT pelvis 10/03/16. FINDINGS: Lower thorax: Small pulmonary nodules, the largest is a 5 mm nodule in the right lower lobe. ABDOMEN: Liver: Unremarkable. Gallbladder and bile ducts: Prior cholecystectomy. Pancreas: Unremarkable. Spleen: Unremarkable. Adrenals: Unremarkable. Kidneys and ureters: Nonspecific perinephric stranding. Slight prominence of the right renal collecting system without evidence of ureteral stone. Tiny right renal hypodensity, query angiomyolipoma. Stomach and bowel: Fluid in the colon compatible with history of diarrheal disease. Scattered colonic diverticula. No evidence of small bowel obstruction. Appendix: No findings to suggest acute appendicitis. PELVIS: Bladder: Unremarkable. Reproductive: Unremarkable as visualized. ABDOMEN and PELVIS: Intraperitoneal space: Unremarkable. No free air. No significant fluid collection. Bones/joints: No acute fracture. Soft tissues: Small fat-containing umbilical hernia. Vasculature: Atherosclerotic disease. Lymph nodes: Unremarkable. IMPRESSION: 1. Fluid in the colon compatible with history of diarrheal disease. Scattered colonic diverticula. 2. Small pulmonary nodules, the largest is a 5 mm nodule in the right lower lobe. Compare to prior studies if available, nonemergent chest CT may be considered if indicated. 3. Additional incidental findings, as above.
[2016-11-09] MEDS ORDERED: FAMOTIDINE 20 MG/2 ML VIAL IV STA (02:55)
[2016-11-09] MEDS ORDERED: ONDANSETRON 4 MG/2 ML VIAL IVP STA (02:56)
[2016-11-09] MEDS ORDERED: ACETAMINOPHEN TAB 325 MG TAB PO PRN (03:02)
[2016-11-09] MEDS ORDERED: NALOXONE 0.4 MG/ML 1 ML VIAL IV PRN (03:02)
[2016-11-09] MEDS ORDERED: ONDANSETRON 4 MG/2 ML VIAL IVP PRN (03:02)
[2016-11-09] MEDS ORDERED: LOPERAMIDE 2 MG CAP PO PRN (03:02)
[2016-11-09] MEDS ORDERED: METOPROLOL SUCCINATE (ER) 100 MG TAB.ER.24H PO SCH ×2 (03:15→21:00)
[2016-11-09] MEDS: POTASSIUM CHLORIDE 10 MEQ, LIDOCAINE 2% INJ 10 MG in SODIUM CHLORIDE 0.9% 100 ML IVPB SCH ×2 (03:25→04:33)
[2016-11-09] MEDS: SODIUM CHLORIDE 0.9% 1,000 ML IV SCH ×2 (04:33→12:46)
[2016-11-09 04:44] VITALS: TEMP 97.6
[2016-11-09 05:07] VITALS: BMI 34.9
[2016-11-09 07:25] LABS: Glucose,Whole Blood 105 mg/dL (75-99)
[2016-11-09] MEDS: INSULIN LISPRO (humaLOG) 300 UNIT/3 ML VIAL SQ SCH ×6 (09:10→17:52)
[2016-11-09 10:09] VITALS: BP 144/67; PULSE 70; RESP 15
[2016-11-09 11:53] LABS: Glucose,Whole Blood 124 mg/dL (75-99)
--- NOTE | 2016-11-09 15:57 | P.HPIM ---
History of Present Illness Patient is a pleasant 76-year-old female came in with patient had 5 episodes today but patient is wishing to go home. diarrhea patient appears to have chronic diarrhea patient has this diarrhea issues since her childhood which resolved and started having diarrhea again recently a few months ago. patient denied any blood in the stools denied any abdominal pain denied any nausea vomiting. Patient does not appear to be dehydrated patient only has small bowel movements multiple of them including today. C. diff testing was ordered which was negative. Patient underwent workup for infectious diarrhea which was ruled out. Patient appears to have been a sensory evaluated for chronic diarrhea patient when colonoscopy month of May is reviewed the prior previous chart and patient was found to have collagenous colitis at this to the point of time and patient was discharged on prednisone 40 mg daily patient did not tolerate the prednisone had psychotic episodes because of which Dr. Wilson her primary care physician discontinued prednisone. I'll discharge the patient to follow with Dr. Wilson tomorrow. She will be discharged on budosenide which has much less and systemic absorption. Patient will be discharged on Questran, Imodium and Pitocin at tapering doses. But does admit he need prior authorization which I'm unable to do today. If it is prior ionization I asked her to go to Dr. Wilson's clinic. Patient will need to follow with gastroneurology as well. Review of Systems REVIEW OF SYSTEMS: CONSTITUTIONAL: No fever, no malaise, no fatigue. HEENT: No recent visual problems or hearing problems. Denied any sore throat. CARDIOVASCULAR: No chest pain, orthopnea, PND, no palpitations, no syncope. PULMONARY: No shortness of breath, no cough, no hemoptysis. GASTROINTESTINAL: no nausea, no vomiting, no abdominal pain. Normoactive bowel sounds. NEUROLOGICAL: No headaches, no weakness, no numbness. HEMATOLOGICAL: Denies any bleeding or petechiae. GENITOURINARY: Denies any burning micturition, frequency, or urgency. MUSCULOSKELETAL/RHEUMATOLOGICAL: Denies any joint pain, swelling, or any muscle pain. ENDOCRINE: Denies any polyuria or polydipsia. 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 cardiac arrest 4 yrs ago at [facility]- here with lung infection. CVA-; denies residual effects of cva Hx Factor V. Gout History of Any Multi-Drug Resistant Organisms: None Reported Past Surgical History: Cholecystectomy, Hysterectomy Additional Past Surgical History / Comment(s): Nasal surgery Past Anesthesia/Blood Transfusion Reactions: Motion Sickness Past Psychological History: No Psychological Hx Reported Smoking Status: Former smoker Past Alcohol Use History: None Reported, Occasional Additional Past Alcohol Use History / Comment(s): QUIT SMOKING IN 2002, 50 YRS, 2PPD. Past Drug Use History: None Reported - Past Family History Mother Family Medical History: Cancer Father Family Medical History: Diabetes Mellitus, Myocardial Infarction (DE) Additional Family Medical History / Comment(s): Hx. diabetes, cardiac, -father, mom-cancer, mothers extended family factor A Medications and Allergies Home Medications Medication Instructions Recorded Confirmed Type Febuxostat [Uloric] 40 mg PO HS 01/12/14 11/09/16 History Metoprolol Succinate (ER) [Toprol 100 mg PO DAILY 01/12/14 11/09/16 History XL] Simvastatin [Zocor] 40 mg PO HS 01/12/14 11/09/16 History Insulin Lispro [humaLOG Kwikpen] 14 units SQ TID-W/MEALS 06/30/14 11/09/16 History Insulin Detemir [Levemir Flextouch] 32 units SQ HS 11/09/16 11/09/16 History Allergies Allergy/AdvReac Type Severity Reaction Status Date / Time codeine Allergy Severe Itching Verified 11/09/16 12:07 levofloxacin [From Levaquin] Allergy Severe Rash/Hives Verified 11/09/16 12:07 metronidazole [From Flagyl] Allergy Severe Anaphylaxis Verified 11/09/16 12:07 acetaminophen [From [place]] Allergy Nausea & Verified 11/09/16 12:07 Vomiting & Diarrhea diphenoxylate [From Lomotil] Allergy Abdominal Verified 11/09/16 12:07 Pain hydrocodone [From [place]] Allergy Nausea & Verified 11/09/16 12:07 Vomiting & Diarrhea Physical Exam Vitals: Vital Signs Temp Pulse Pulse Pulse Pulse Resp BP 11/09/16 07:00 97.6 F 70 15 11/09/16 05:00 16 11/09/16 04:43 97.6 F 74 16 11/09/16 04:18 97.2 F L 82 16 145/67 11/09/16 03:27 97.2 F L 78 18 161/70 11/09/16 03:12 80 84 81 11/09/16 02:26 87 18 154/66 11/08/16 23:35 98.3 F 78 16 180/70 BP BP BP Pulse Ox 11/09/16 07:00 144/67 95 11/09/16 05:00 11/09/16 04:43 149/65 98 11/09/16 04:18 96 11/09/16 03:27 96 11/09/16 03:12 157/71 152/68 154/67 11/09/16 02:26 96 11/08/16 23:35 96 Intake and Output 11/09/16 11/09/16 11/09/16 06:59 14:59 22:59 Intake Total 120 700 Balance 120 700 Intake: IV 120 Sodium Chloride 0.9% 1, 120 000 ml @ 120 mls/hr IV . Q8H20M [facility] Rx#:[id number] Oral 700 Other: Voiding Method Toilet Toilet Weight 104.326 kg PHYSICAL EXAMINATION: GENERAL: The patient is alert and oriented x3, not in any acute distress. Well developed, well nourished. HEENT: Pupils are round and equally reacting to light. EOMI. No scleral icterus. No conjunctival pallor. Normocephalic, atraumatic. No pharyngeal erythema. No thyromegaly. CARDIOVASCULAR: S1 and S2 present. No murmurs, rubs, or gallops. PULMONARY: Chest is clear to auscultation, no wheezing or crackles. ABDOMEN: Soft, nontender, nondistended, normoactive bowel sounds. No palpable organomegaly. MUSCULOSKELETAL: No joint swelling or deformity. EXTREMITIES: No cyanosis, clubbing, or pedal edema. NEUROLOGICAL: Gross neurological examination did not reveal any focal deficits. SKIN: No rashes. Results CBC & Chem 7: 11/09/16 00:20 11/09/16 00:20 Labs: Abnormal Lab Results - Last 24 Hours (Table) 11/09/16 11/09/16 11/09/16 Range/Units 00:20 00:20 07:11 PT 34.0 H (9.0-12.0) sec INR 3.5 H (<1.2) APTT 34.2 H (22.0-30.0) sec Potassium 3.4 L (3.5-5.1) mmol/L Carbon Dioxide 20 L (22-30) mmol/L BUN 20 H (7-17) mg/dL Glucose 160 H (74-99) mg/dL POC Glucose (mg/dL) 105 H (75-99) mg/dL Total Protein 6.2 L (6.3-8.2) g/dL Amylase <30 L (30-110) U/L 11/09/16 Range/Units 11:50 PT (9.0-12.0) sec INR (<1.2) APTT (22.0-30.0) sec Potassium (3.5-5.1) mmol/L Carbon Dioxide (22-30) mmol/L BUN (7-17) mg/dL Glucose (74-99) mg/dL POC Glucose (mg/dL) 124 H (75-99) mg/dL Total Protein (6.3-8.2) g/dL Amylase (30-110) U/L Microbiology - Last 24 Hours (Table) 11/09/16 00:15 Stool Culture - Preliminary Stool Thrombosis Risk Factor Assmnt - Choose All That Apply Any of the Below Risk Factors Present?: Yes Each Factor Represents 1 point: Age 41-60 years, Hx of IBD, Obesity (BMI >25) Other Risk Factors: Yes Each Risk Factor Represents 2 Points: Age 61-74 years Each Risk Factor Represents 3 Points: Positive Factor V Leiden, Age 75 years or older, History of DVT/PE Other congenital or acquired thrombophilia - If yes, enter type in comment: No Thrombosis Risk Factor Assessment Total Risk Factor Score: 14 Thrombosis Risk Factor Assessment Level: High Risk Assessment and Plan Plan: 1 diarrhea: It appears to be chronic and patient is not dehydrated at this point of time patient will be discharged with medications for symptoms of diarrhea. Along with that we will also give oral steroid and follow with Dr. Wilson as an outpatient and this is probably related to collagenous colitis. 2 sleep apnea on CPAP machine ratio will be continued on that #3 patient is on Coumadin for blood disorder for which she'll continue with Coumadin her INR is 3.5, down the current 4 mg. #4 type 2 diabetes mellitus #5 cerebral vascular accident #6 hypertension #7 hyperlipidemia For above-mentioned chronic medical problems I will continue her home medications. And follow with Dr. Wilson as an outpatient.
[2016-11-09 17:07] LABS: Glucose,Whole Blood 95 mg/dL (75-99)
[2016-11-09] MEDS ORDERED: ATORVASTATIN 20 MG TAB PO SCH (21:00)
[2016-11-09] MEDS ORDERED: INSULIN DETEMIR 100 UNIT/ML 10 ML VIAL SQ SCH (21:00)
[2016-11-09] MEDS ORDERED: ALLOPURINOL 100 MG TAB PO SCH (21:00)
[2016-11-09] MEDS ORDERED: WARFARIN 2 MG TAB PO SCH ×2 (21:00)
== END 2016-11-09 17:45 | disposition home or self-care (01) ==
LOC: EC 23:17 → 3SUR 11-09 03:46
PROVIDERS: ADMIT Internal Medicine; ATTEND Internal Medicine
DX: E86.0 Dehydration (principal); K52.9 Noninfective gastroenteritis and colitis, unspecified; G47.30 Sleep apnea, unspecified; E11.9 Type 2 diabetes mellitus without complications; I10 Essential (primary) hypertension; E78.5 Hyperlipidemia, unspecified; R91.1 Solitary pulmonary nodule; K57.30 Diverticulosis of large intestine without perforation or abscess without bleeding; E87.6 Hypokalemia; Z79.01 Long term (current) use of anticoagulants; Z79.899 Other long term (current) drug therapy; Z79.4 Long term (current) use of insulin; M06.9 Rheumatoid arthritis, unspecified; Z86.73 Personal history of transient ischemic attack (TIA), and cerebral infarction without residual deficits; Z86.74 Personal history of sudden cardiac arrest; Z87.891 Personal history of nicotine dependence; Z83.3 Family history of diabetes mellitus; K52.831 Collagenous colitis
CPT/HCPCS: 96375 ×3; 96361 ×5; 96374 ×2; 99285 ×2; 36415; 80053; 82150; 83036; 83690; 85025; 85610; 85730; 87040; 87324; 87045; 87046; 74176; G0378; J2001; J2765; J2405; J3480

== ENCOUNTER → 2017-01-05 | Outpatient (CLI) | payer MEDICARE, BC ==
--- NOTE | 2017-01-05 20:45 | MR ---
EXAMINATION TYPE: MR cervical spine wo con DATE OF EXAM: 01/05/2017 COMPARISON: 09/06/2008 HISTORY: 76-year-old female pain, Radiculopathy, cervical region TECHNIQUE: Multiplanar, multisequence images of the cervical spine were obtained without IV contrast. FINDINGS: No craniocervical junction abnormality, predental space widening, or prevertebral soft tissue swellin g. There is trace grade 1 retrolisthesis at C4-C5 and C5-C6. No suspicious bone marrow replacement. Moderate degenerative disc disease characterized by desiccated and narrowed discs with disc osteophyt e complex formation. Multilevel ligamentum flavum thickening is present along with facet and uncovertebral joint degenerat kojo change. At C2-C3, there is mild disc osteophyte complex and ligamentum flavum thickening. Overall mild narrow ing of the spinal canal. Minimal abutment of the ventral cord. Mild left neuroforaminal stenosis. At C3-C4, mild disc osteophyte complex formation, ligamentum flavum thickening, and mild uncovertebra l joint/facet arthropathy. Changes result in mild spinal canal stenosis with abutment and slight flat tening of the ventral cord. No significant neural foraminal stenosis. At C4-C5, there is disc osteophyte complex with uncovertebral joint and facet arthropathy and trace g rade 1 retrolisthesis as well as ligamentum flavum thickening. Changes result in moderate spinal ashley l stenosis, increased from prior. There is abutment and flattening of the ventral cord but no rishi c ord compression. There is moderate right and mild left neuroforaminal stenosis, increased from prior. At C5-C6, there is disc osteophyte complex with left greater than right uncovertebral joint arthropat hy. Mild facet arthropathy is also present. Changes result in mild spinal canal stenosis with moderat e left and mild right neural foraminal stenosis. At C6-C7, disc osteophyte complex with left greater than right uncovertebral joint and facet arthropa thy. Changes mildly narrow the spinal canal and causes moderate left and mild right neuroforaminal st enosis. At C7-T1, there is facet degenerative change without significant canal or foraminal stenosis. Normal T2 cord signal. No prevertebral or paravertebral soft tissue abnormality seen. IMPRESSION: 1. Moderate disc/endplate degenerative changes, ligamentum flavum thickening, and uncovertebral joint /facet arthropathy. There are degenerative trace grade 1 retrolistheses at C4-C5 and C5-C6. 2. Changes have slightly worsened since 2008 especially at C4-C5 where there is now a moderate spinal canal stenosis. Disc osteophyte complex abuts and mildly flattens the ventral cord without cord comp ression. 3. Variable mild spinal canal stenoses at additional levels. 4. Variable mild to moderate neuroforaminal stenoses as outlined above.
== END | disposition home or self-care (01) ==
LOC: RADMRIMAIN 16:27
PROVIDERS: ATTEND Internal Medicine Rheumatology
DX: M99.71 Connective tissue and disc stenosis of intervertebral foramina of cervical region (principal); M47.812 Spondylosis without myelopathy or radiculopathy, cervical region
CPT/HCPCS: 72141

== ENCOUNTER 2019-04-11 16:41 | Emergency (ER) | payer MEDICARE ==
--- NOTE | 2019-04-11 16:53 | US ---
EXAMINATION TYPE: US venous doppler duplex LE LT DATE OF EXAM: 04/11/2019 4:23 PM COMPARISON: NONE CLINICAL HISTORY: R60.9 EDEMA. Left foot swelling SIDE PERFORMED: Left TECHNIQUE: The lower extremity deep venous system is examined utilizing real time linear array sonog michael with graded compression, doppler sonography and color-flow sonography. VESSELS IMAGED: External Iliac Vein (EIV) Common Femoral Vein Deep Femoral Vein Greater Saphenous Vein * Femoral Vein Popliteal Vein Small Saphenous Vein * Proximal Calf Veins (* superficial vessels) Left Leg: Positive for DVT left distal popliteal and left proximal calf vein. IMPRESSION: There is acute and chronic deep venous thrombosis in the calf veins and popliteal vein.
[2019-04-11 17:12] VITALS: TEMP 98
--- NOTE | 2019-04-11 17:50 | ED ---
Extremity Problem HPI - General Chief complaint: Extremity Problem,Nontraumatic Stated complaint: positive DVT Source: patient, RN notes reviewed, old records reviewed Mode of arrival: wheelchair Limitations: no limitations - History of Present Illness Initial comments: this is a 78-year-old female here for evaluation history affected 5 [place], here for left leg. History of DVT and coming in from outpatient ultrasound with positive ultrasound for DVT. No recent travel no sick contacts not currently on any anticoagulation Hailey baby aspirin. No shortness of breath or chest pain MD Complaint: extremity pain, extremity swelling, other (left lower extremity, calf) -: days(s) Location: left, lower extremity Radiation: proximal Severity scale (1-10): 4 Quality: aching Consistency: constant Improves with: nothing Worsens with: nothing Associated Symptoms: denies other symptoms - Related Data Home Medications Medication Instructions Recorded Confirmed Metoprolol Succinate (ER) [Toprol 100 mg PO DAILY 01/12/14 04/11/19 XL] Insulin Lispro [humaLOG Kwikpen] 20 units SQ TID-W/MEALS 06/30/14 04/11/19 Insulin Detemir [Levemir Flextouch] 42 units SQ HS 11/09/16 04/11/19 Allopurinol [Zyloprim] 100 mg PO DAILY 04/11/19 04/11/19 Aspirin EC [Ecotrin Low Dose] 81 mg PO DAILY 04/11/19 04/11/19 Losartan/Hydrochlorothiazide 1 tab PO DAILY 04/11/19 04/11/19 [Losartan-Hctz 100-25 mg Tab] Pregabalin [Lyrica] 50 mg PO TID 04/11/19 04/11/19 methylPREDNISolone [Medrol Dose See Taper PO DIRECTED 04/11/19 04/11/19 Pack] Previous Rx's Medication Instructions Recorded Rivaroxaban [Xarelto Starter Pack] 0 mg PO DIRECTED 30 Days #1 pack 04/11/19 Rivaroxaban [Xarelto] 15 mg PO BID #42 tab 04/11/19 Allergies Allergy/AdvReac Type Severity Reaction Status Date / Time codeine Allergy Severe Itching Verified 04/11/19 18:11 levofloxacin [From Levaquin] Allergy Severe Rash/Hives Verified 04/11/19 18:11 metronidazole [From Flagyl] Allergy Severe Anaphylaxis Verified 04/11/19 18:11 acetaminophen [From [place]] AdvReac Nausea & Verified 04/11/19 18:11 Vomiting & Diarrhea diphenoxylate [From Lomotil] AdvReac Abdominal Verified 04/11/19 18:11 Pain hydrocodone [From [place]] AdvReac Nausea & Verified 04/11/19 18:11 Vomiting & Diarrhea Review of Systems ROS Statement: Those systems with pertinent positive or pertinent negative responses have been documented in the HPI. ROS Other: All systems not noted in ROS Statement are negative. 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 cardiac arrest 4 yrs ago at [facility]- here with lung infection. CVA-; denies residual effects of cva Hx Factor V. Gout History of Any Multi-Drug Resistant Organisms: None Reported Past Surgical History: Cholecystectomy, Hysterectomy Additional Past Surgical History / Comment(s): Nasal surgery Past Anesthesia/Blood Transfusion Reactions: Motion Sickness Past Psychological History: No Psychological Hx Reported Smoking Status: Former smoker Past Alcohol Use History: None Reported Past Drug Use History: None Reported - Past Family History Mother Family Medical History: Cancer Father Family Medical History: Diabetes Mellitus, Myocardial Infarction ([place]) Additional Family Medical History / Comment(s): Hx. diabetes, cardiac, -father, mom-cancer, mothers extended family factor A General Exam Limitations: no limitations Course Vital Signs 04/11/19 04/11/19 17:10 17:57 Temperature 98.0 F Pulse Rate 77 75 Respiratory 18 19 Rate Blood Pressure 170/89 198/108 O2 Sat by Pulse 96 96 Oximetry - Reevaluation(s) Reevaluation #1: 04/11/19 19:30 medical records reviewed history of factor V Leiden Reevaluation #2: 04/11/19 19:30 spoke with patient at length regarding need take Xarelto, she is agreeable. Patient liquors prescriptions for through [facility] - Consultations Consultation #1: spoke w DR Ewing who will facilitate patient's Xarelto at home Medical Decision Making - Medical Decision Making 78 female to ER positive DVT we'll prescribe Xarelto and patient will be seen in Dr. Ewing's office tomorrow for continued prescriptions of Xarelto - Radiology Data Radiology results: report reviewed (ultrasound positive for DVT) Disposition Clinical Impression: Deep vein thrombosis (DVT) of lower extremity Disposition: HOME SELF-CARE Condition: Good Instructions (If sedation given, give patient instructions): Deep Vein Thrombosis (ED) Prescriptions: Rivaroxaban [Xarelto] 15 mg PO BID #42 tab Rivaroxaban [Xarelto Starter Pack] 0 mg PO DIRECTED 30 Days #1 pack Is patient prescribed a controlled substance at d/c from ED?: No Referrals: Wendi Ricci DPM [Family Provider] - 1-2 days
[2019-04-11] MEDS ORDERED: RIVAROXABAN 15 MG TAB PO STA ×3 (18:49→19:06)
[2019-04-11 19:46] VITALS: BP 160/75; PULSE 72; RESP 15
== END 2019-04-11 20:00 | disposition home or self-care (01) ==
LOC: EC 16:41
DX: I82.402 Acute embolism and thrombosis of unspecified deep veins of left lower extremity (principal); E11.9 Type 2 diabetes mellitus without complications; I10 Essential (primary) hypertension; G47.30 Sleep apnea, unspecified; Z79.4 Long term (current) use of insulin; Z79.82 Long term (current) use of aspirin; Z79.899 Other long term (current) drug therapy; Z88.5 Allergy status to narcotic agent; Z88.1 Allergy status to other antibiotic agents; Z88.6 Allergy status to analgesic agent; Z88.8 Allergy status to other drugs, medicaments and biological substances; Z87.891 Personal history of nicotine dependence; Z86.73 Personal history of transient ischemic attack (TIA), and cerebral infarction without residual deficits; Z86.74 Personal history of sudden cardiac arrest
CPT/HCPCS: 99284

== ENCOUNTER → 2019-06-29 | Outpatient (CLI) | payer MEDICARE ==
--- NOTE | 2019-06-29 14:41 | MR ---
EXAMINATION TYPE: MR tspine/lspine wo con DATE OF EXAM: 06/29/2019 COMPARISON: 09/05/2009 HISTORY: Mid Low Back Pain TECHNIQUE: Multiplanar, multisequence imaging of the thoracic and lumbar spine is performed without I V contrast. FINDINGS: Lumbar and thoracic spine: Mild compression deformities and superior endplate Schmorl's nodes are seen at T11 and T12. The T12 v ertebral body fracture as discussed on the prior MRI of the lumbar spine of 2009 however the T11 mild compression deformity was not visualized at that time. There is no bone marrow edema and therefore t his is also a chronic fracture. The remainder of the vertebral body heights of both the lumbar and th oracic spine are maintained. No bone marrow edema throughout. Multilevel degenerative disc disease. T horacic spinal cord signal and conus medullaris signal are unremarkable. Conus medullaris terminates at L1-L2. Too small to accurately characterize right renal posterior medial cortical lesion is subcen timeter on axial T2 nonfat sat image 22 on the right. Thoracic spine: From T1 through T5 no significant neural foraminal narrowing or spinal canal stenosis is seen. Disc d esiccation is seen throughout these levels. No focal disc herniation. At T5-T6 there is a small centr al disc herniation without spinal canal stenosis or neural foraminal narrowing. At T6-T7 there is dis c desiccation without neuroforaminal narrowing or spinal canal stenosis. At T7-T8 there is a small ce ntral disc herniation with 2 mm of cranial subligamentous disc extrusion. There is also facet arthrop athy however no significant neural foraminal narrowing or spinal canal stenosis is seen. At T8-T9 the re is a right paracentral disc herniation with 2 mm of subligamentous cranial disc extrusion. Facet a rthropathy is also seen creating very minimal right neural foraminal narrowing without spinal canal s tenosis nor left neural foraminal narrowing. At T9-T10 and T10-T11 there are very small broad-based d isc bulges and disc desiccation without spinal canal stenosis or neural foraminal narrowing. At T11-T 12 there is a broad-based disc bulge without spinal canal stenosis or neural foraminal narrowing. No focal disc herniation. This desiccation is seen at T11-T12 without spinal canal stenosis or neural fo raminal narrowing. Mild facet arthropathy. Lumbar spine: L1-L2: There is a broad-based disc bulge and facet arthropathy with minimal ligamentum flavum bucklin g resulting in very mild bilateral neural foraminal narrowing without spinal canal stenosis. L2 T1/T2 hyperintense vertebral body hemangioma is seen of the right lateral vertebral body. L2-L3: There is a broad-based disc bulge and facet arthropathy with minimal ligamentum flavum bucklin g resulting in very mild bilateral neural foraminal narrowing without spinal canal stenosis. L3-L4: There is disc desiccation and a small broad-based disc bulge without spinal canal stenosis. Fa cet arthropathy and ligamentum flavum buckling contribute to very mild bilateral neural foraminal aron rowing. L4-5: There is ligamentum flavum buckling and facet arthropathy with small broad-based disc bulge. No significant neural foraminal narrowing on the left. Mild neural foraminal narrowing on the right. No spinal canal stenosis. L5-S1: There is a broad-based disc bulge and facet arthropathy with ligamentum flavum buckling. No sp inal canal stenosis or neural foraminal narrowing. IMPRESSION: 1. Small disc herniations at T7-T8 (central) and T8-T9 (right paracentral) both with 2 mm subligament ous cranial disc extrusion. No resultant spinal canal stenosis. 2. Small central disc herniation at T5-T6 without spinal canal stenosis or neural foraminal narrowing . 3. Mild degenerative disc disease of the remainder of the thoracic and of the lumbar spine without ad ditional disc herniation nor areas of spinal canal stenosis. Variable degrees of neural foraminal aron rowing as detailed above at each level. 4. Chronic mild compression deformities of T11 and T12.
== END | disposition home or self-care (01) ==
LOC: RADMRIMAIN 11:46
PROVIDERS: ATTEND Internal Medicine
DX: M51.36 Other intervertebral disc degeneration, lumbar region (principal); M51.24 Other intervertebral disc displacement, thoracic region; M51.34 Other intervertebral disc degeneration, thoracic region; M43.8X4 Other specified deforming dorsopathies, thoracic region
CPT/HCPCS: 72146; 72148

== ENCOUNTER → 2019-09-14 | Outpatient (CLI) | payer MEDICARE | END | disposition home or self-care (01) | LOC: LABWHC1 11:58 | PROVIDERS: ATTEND Internal Medicine Gastroenterology | DX: Z11.59 Encounter for screening for other viral diseases (principal) ==

== ENCOUNTER 2019-09-16 07:21 | Day surgery (SDC) | payer MEDICARE ==
[2019-09-13 14:46] VITALS: BMI 39.0
[~2019-09-16 07:21] MED LIST changes: -DEXAMETHASONE SOD PHOSPHATE 10 MG/ML 1 ML VIAL IV ONE; -HEPARIN SODIUM,PORCINE 5,000 UNIT/ML 1 ML VIAL SQ ONE; -ceFAZolin 2 GM in SODIUM CHLORIDE 0.9% 100 ML IVPB ONE
[2019-09-16] MEDS ORDERED: LIDOCAINE 1% (10MG/ML) FOR IV START INTRADERMA ONE (07:50)
[2019-09-16 07:54] LABS: Glucose,Whole Blood 237 mg/dL (75-99)
[2019-09-16] MEDS ORDERED: INSULIN ASPART (NovoLOG) 100 UNIT/ML VIAL SQ ONE ×2 (07:57→08:33)
[2019-09-16] MEDS ORDERED: PROPOFOL 10 MG/ML 20 ML VIAL IV ONE (07:59)
[2019-09-16] MEDS ORDERED: LIDOCAINE 1% INJ 10MG/ML (20 ML MDV) ONE (07:59)
[2019-09-16 08:01] VITALS: TEMP 98
--- NOTE | 2019-09-16 08:17 | P.PCN ---
Date of Procedure: 09/16/19 Procedure(s) Performed: BRIEF HISTORY: Patient is a 79-year-old pleasant white female scheduled for an elective colonoscopy as a part of evaluation of rectal bleeding 2 weeks ago. Her last colonoscopy was more than 10 years ago. PROCEDURE PERFORMED: Colonoscopy with snare polypectomy. PREOPERATIVE DIAGNOSIS: Rectal bleeding. IV sedation per Anesthesia. PROCEDURE: After informed consent was obtained, the patient, was brought into the endoscopy unit. IV sedation was administered by Anesthesia under continuous monitoring. Digital rectal examination was normal. Initially the Olympus CF-160 flexible video colonoscope was then inserted in the rectum, gradually advanced into the cecum without any difficulty. Careful examination was performed as the scope was gradually being withdrawn. Ileocecal valve and the appendiceal orifice were visualized and appeared normal. Prep was excellent. Mucosa of the cecum, ascending colon, transverse colon, appeared normal. In the descending colon there was a 5-6 mm sessile polyp that was removed by snare polypectomy. Rest of the descending colon, sigmoid colon, and rectum appeared normal. Scattered sigmoid diverticulosis seen. Retroflexion was performed in the rectum and small internal hemorrhoids were seen. The patient tolerated the procedure well. IMPRESSION: 5-6 mm sessile descending colon polyp status post polypectomy Scattered sigmoid diverticulosis Small internal hemorrhoids RECOMMENDATIONS: Findings of this examination were discussed with the patient as well as her family she was advised to follow with the biopsy results. She can be a high-fiber diet and take fiber supplements a regular basis and avoid straining and constipation.
[2019-09-16 08:22] VITALS: RESP 16
[2019-09-16 08:30] LABS: Glucose,Whole Blood 252 mg/dL (75-99)
[2019-09-16 08:36] VITALS: BP 112/57; PULSE 71
[2019-09-16 08:54] LABS: Glucose,Whole Blood 207 mg/dL (75-99)
== END 2019-09-16 09:03 | disposition home or self-care (01) ==
LOC: ORWHC2ENDO 07:21
PROVIDERS: ATTEND Internal Medicine Gastroenterology
DX: D12.4 Benign neoplasm of descending colon (principal); K57.30 Diverticulosis of large intestine without perforation or abscess without bleeding; K64.8 Other hemorrhoids; K62.5 Hemorrhage of anus and rectum; I10 Essential (primary) hypertension; E78.49 Other hyperlipidemia; Z86.718 Personal history of other venous thrombosis and embolism; I25.2 Old myocardial infarction; G47.33 Obstructive sleep apnea (adult) (pediatric); Z99.89 Dependence on other enabling machines and devices; Z87.891 Personal history of nicotine dependence; E11.9 Type 2 diabetes mellitus without complications; M06.9 Rheumatoid arthritis, unspecified; Z86.73 Personal history of transient ischemic attack (TIA), and cerebral infarction without residual deficits; Z90.49 Acquired absence of other specified parts of digestive tract; Z98.890 Other specified postprocedural states; E66.01 Morbid (severe) obesity due to excess calories; Z68.39 Body mass index [BMI] 39.0-39.9, adult; K92.89 Other specified diseases of the digestive system; D68.2 Hereditary deficiency of other clotting factors; Z79.01 Long term (current) use of anticoagulants; Z79.899 Other long term (current) drug therapy; Z79.4 Long term (current) use of insulin; Z88.1 Allergy status to other antibiotic agents; Z88.5 Allergy status to narcotic agent; Z88.8 Allergy status to other drugs, medicaments and biological substances; Z91.048 Other nonmedicinal substance allergy status
CPT/HCPCS: 88305; 45385; J2001; J2704

== ENCOUNTER → 2020-05-15 | Outpatient (CLI) | payer MEDICARE ==
[2020-05-15 15:57] LABS: African American GFR (CKD) 49.8 (60.0-200.0); Albumin 4.8 g/dL (3.80-4.90); Anion Gap 10.9 mmol/L (4.00-12.00); BUN/Creat Ratio 24.17 Ratio (12.00-20.00); Calcium 9.7 mg/dL (8.7-10.3); Carbon Dioxide 25.1 mmol/L (21.6-31.8); Chol/HDL Ratio 4.4; Globulin 1.6 g/dL (1.6-3.3); Non-African American GFR(CKD) 42.9 (60.0-200.0); Potassium 4.6 mmol/L (3.5-5.5); Total Bilirubin 0.6 mg/dL (0.2-1.2); Total Protein 6.4 g/dL (6.2-8.2)
[2020-05-15 17:32] LABS: Hemoglobin A1C 6.8 % (4.0-6.0)
[2020-05-15 18:52] LABS: Urine Creatinine 107.1 mg/dL
== END | disposition home or self-care (01) ==
LOC: LABWHC1 10:10
PROVIDERS: ATTEND Internal Medicine Endocrinology, Diabetes & Metabolism
DX: E11.65 Type 2 diabetes mellitus with hyperglycemia (principal)
CPT/HCPCS: 36415; 80053; 80061; 82043; 82570; 83036; 84443

== ENCOUNTER 2020-07-22 07:42 | Emergency (ER) | payer MEDICARE ==
[2020-07-22 07:50] VITALS: RESP 24; TEMP 99.8
[2020-07-22 08:07] LABS: Basophils % (A) 0 %; Eosinophils % (A) 1 %; HCT 41.3 % (34.0-46.0); HGB 14.6 gm/dL (11.4-16.0); Lymphocytes # (A) 1.3 k/uL (1.0-4.8); Lymphocytes % (A) 24 %; MCHC 35.4 g/dL (31.0-37.0); MCV 93.4 fL (80.0-100.0); Mean Platelet Volume 8.4; Monocytes # (A) 0.3 k/uL (0-1.0); Monocytes % (A) 5 %; Neutrophils # (A) 3.7 k/uL (1.3-7.7); Neutrophils % (A) 70 %; Platelet Count 129 k/uL (150-450); RBC 4.43 m/uL (3.80-5.40); RDW 13.5 % (11.5-15.5); WBC 5.3 k/uL (3.8-10.6)
--- NOTE | 2020-07-22 08:21 | ED ---
General Adult HPI - General Chief complaint: Nausea/Vomiting/Diarrhea Stated complaint: poss Covid, N/V/D Time Seen by Provider: 07/22/20 07:51 Source: patient, EMS Mode of arrival: ambulatory Limitations: no limitations - History of Present Illness Initial comments: Dictation was produced using [employer] dictation software. please excuse any grammatical, word or spelling errors. This patient was cared for during a federal and state declared state of emergency secondary to Covid 19 Chief Complaint: Patient is 80-year-old female past medical history of diabetes, rheumatoid arthritis, hypertension dyslipidemia presents with cold symptoms for approximately 8 days. History of Present Illness: This 80-year-old female she has multiple comorbidities. For the last a day she's been having symptoms suspicious for Covid 19. She states that she's been having nausea, vomiting, diarrhea. She also has myalgias diffusely. Patient states that her is also having symptoms. She received the Aime & Aime vaccine on 06/22/2020. She does complain of mild dyspnea. The ROS documented in this emergency department record has been reviewed and confirmed by me. Those systems with pertinent positive or negative responses have been documented in the HPI. All other systems are other negative and/or noncontributory. PHYSICAL EXAM: General Impression: Alert and oriented x3, not in acute distress HEENT: Normocephalic atraumatic, extra-ocular movements intact, pupils equal and reactive to light bilaterally, mucous membranes moist. Cardiovascular: Heart regular rate and rhythm Chest: Able to complete full sentences, no retractions, no tachypnea, lungs clear to auscultation bilaterally Abdomen: abdomen soft, non-tender, non-distended, no organomegaly Musculoskeletal: Pulses present and equal in all extremities, no peripheral edema Motor: no focal deficits noted Neurological: CN II-XII grossly intact, no focal motor or sensory deficits noted Skin: Intact with no visualized rashes Psych: Normal affect and mood ED course: 80 yo Female with symptoms suspicious of Covid 19 vital signs upon arrival shows central 99.8, 94% on room air. Rest vital signs within acceptable limits. EKG interpretation: Ventricular rate 70, normal sinus rhythm, RI interval 142, QRS 80, QTc 447. No RI prolongation, no QTC prolongation, no ST or T-wave changes noted. EKG compared to July 08 2016 showing no changes. Overall, this EKG is unremarkable She did receive Aime [employer] Aime Covid 19 vaccination one month ago. Laboratory evaluation obtained. CBC is unremarkable. Metabolic panel shows findings within acceptable limits. She is positive for coronavirus. Chest x- ray shows bibasilar opacity concerning for infiltrates. Patient reevaluated at bedside at approximately 9:10 AM. She is well-appearing showing no signs of respiratory distress. At rest she is not hypoxic. Ambulatory pulse ox is normal. At this point no indication for admission to the hospital. Patient is told to recover at home. Still to monitor symptoms and return if her symptoms get worse. - Related Data Home Medications Medication Instructions Recorded Confirmed Metoprolol Succinate (ER) [Toprol 100 mg PO HS 01/12/14 09/16/19 XL] Insulin Lispro [humaLOG Kwikpen] 22 units SQ TID-W/MEALS 06/30/14 09/16/19 Insulin Detemir [Levemir Flextouch] 52 units SQ HS 11/09/16 09/16/19 Losartan/Hydrochlorothiazide 1 tab PO HS 04/11/19 09/16/19 [Losartan-Hctz 100-25 mg Tab] Pregabalin [Lyrica] 50 mg PO TID 04/11/19 09/16/19 allopurinoL [Zyloprim] 100 mg PO DAILY 04/11/19 09/16/19 Collagen Supplement 1 dose PO DAILY 09/13/19 09/16/19 Keto-Fit Supplement 1 tab PO DAILY 09/13/19 09/16/19 Rivaroxaban [Xarelto] 20 mg PO DAILY 09/13/19 09/16/19 Vitamin C/Biotin [Hair, Skin and 1 tab PO DAILY 09/13/19 09/16/19 Nails] Allergies Allergy/AdvReac Type Severity Reaction Status Date / Time codeine Allergy Severe Itching Verified 07/22/20 07:50 levofloxacin [From Levaquin] Allergy Severe Rash/Hives Verified 07/22/20 07:50 metronidazole [From Flagyl] Allergy Severe Anaphylaxis Verified 07/22/20 07:50 diphenoxylate [From Lomotil] AdvReac Abdominal Verified 07/22/20 07:50 Pain hydrocodone [From [place]] AdvReac Nausea & Verified 07/22/20 07:50 Vomiting & Diarrhea Review of Systems ROS Statement: Those systems with pertinent positive or pertinent negative responses have been documented in the HPI. ROS Other: All systems not noted in ROS Statement are negative. 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 cardiac arrest 4 yrs ago at [facility]- here with lung infection. CVA-; denies residual effects of cva Hx Factor V. Gout History of Any Multi-Drug Resistant Organisms: None Reported Past Surgical History: Cholecystectomy, Hysterectomy Additional Past Surgical History / Comment(s): Nasal surgery Past Anesthesia/Blood Transfusion Reactions: Motion Sickness Past Psychological History: No Psychological Hx Reported Smoking Status: Never smoker Past Alcohol Use History: None Reported Past Drug Use History: None Reported - Past Family History Mother Family Medical History: Cancer Father Family Medical History: Diabetes Mellitus, Myocardial Infarction ([place]) Additional Family Medical History / Comment(s): Hx. diabetes, cardiac, -father, mom-cancer, mothers extended family factor A General Exam Limitations: no limitations Course Vital Signs 07/22/20 07/22/20 07:46 09:31 Temperature 99.8 F H Pulse Rate 72 88 Respiratory 24 24 Rate Blood Pressure 129/85 144/89 O2 Sat by Pulse 94 L 94 L Oximetry Medical Decision Making - Lab Data Result diagrams: 07/22/20 07:59 07/22/20 07:59 Lab Results 07/22/20 07/22/20 07/22/20 Range/Units 07:59 07:59 07:59 WBC 5.3 (3.8-10.6) k/uL RBC 4.43 (3.80-5.40) m/uL Hgb 14.6 (11.4-16.0) gm/dL Hct 41.3 (34.0-46.0) % MCV 93.4 (80.0-100.0) fL MCH 33.0 (25.0-35.0) pg MCHC 35.4 (31.0-37.0) g/dL RDW 13.5 (11.5-15.5) % Plt Count 129 L (150-450) k/uL MPV 8.4 Neutrophils % 70 % Lymphocytes % 24 % Monocytes % 5 % Eosinophils % 1 % Basophils % 0 % Neutrophils # 3.7 (1.3-7.7) k/uL Lymphocytes # 1.3 (1.0-4.8) k/uL Monocytes # 0.3 (0-1.0) k/uL Eosinophils # 0.0 (0-0.7) k/uL Basophils # 0.0 (0-0.2) k/uL Sodium 135 L (137-145) mmol/L Potassium 3.6 (3.5-5.1) mmol/L Chloride 105 (98-107) mmol/L Carbon Dioxide 22 (22-30) mmol/L Anion Gap 8 mmol/L BUN 29 H (7-17) mg/dL Creatinine 1.08 H (0.52-1.04) mg/dL Est GFR (CKD-EPI)AfAm 57 (>60 ml/min/1.73 sqM) Est GFR (CKD-EPI)NonAf 49 (>60 ml/min/1.73 sqM) Glucose 187 H (74-99) mg/dL Calcium 8.2 L (8.4-10.2) mg/dL Total Bilirubin 0.6 (0.2-1.3) mg/dL AST 54 H (14-36) U/L ALT 32 (4-34) U/L Alkaline Phosphatase 77 (38-126) U/L Total Protein 5.8 L (6.3-8.2) g/dL Albumin 3.6 (3.5-5.0) g/dL Coronavirus (PCR) Detected A (Not Detectd) Disposition Clinical Impression: COVID-19 Disposition: HOME SELF-CARE Instructions (If sedation given, give patient instructions): Coronavirus Disease 2019 (COVID-19) Additional Instructions: Today you were evaluated for symptoms consistent with upper respiratory infection. Today you tested positive for Covid 19. Your are stable for discharge, however it is instructed to to seek immediate medical attention especially if you develop worsening symptoms especially respiratory distress. If possible, try to obtain a pulse oximeter and monitor your oxygen at home. In the meantime please remain in quarantine for 14 days. For any other questions please contact Vivi for here in emergency department or [facility] at [phone] Is patient prescribed a controlled substance at d/c from ED?: No Referrals: Gustavo Ewing MD [Primary Care Provider] - 1-2 days Time of Disposition: 09:40
[2020-07-22 08:22] LABS: Albumin 3.6 g/dL (3.5-5.0); Calcium 8.2 mg/dL (8.4-10.2); Potassium 3.6 mmol/L (3.5-5.1); Total Bilirubin 0.6 mg/dL (0.2-1.3); Total Protein 5.8 g/dL (6.3-8.2)
[2020-07-22] MEDS ORDERED: ONDANSETRON 4 MG/2 ML VIAL IVP STA (08:24)
[2020-07-22] MEDS ORDERED: ACETAMINOPHEN TAB 500 MG TAB PO STA (08:24)
--- NOTE | 2020-07-22 09:01 | XR ---
EXAMINATION TYPE: XR chest 1V portable DATE OF EXAM: 07/22/2020 COMPARISON: 07/09/2016. HISTORY: Covid symptoms. Shortness of breath. TECHNIQUE: Single frontal view of the chest is obtained. FINDINGS: There is mild to moderate peripheral opacities in the right mid to lower lung. There is al so mild left basilar hazy opacity. No pleural effusion, or pneumothorax seen. The cardiac silhouette size is borderline enlarged. The osseous structures are intact. IMPRESSION: Bibasilar opacities, concerning for infiltrates.
[2020-07-22 09:33] VITALS: BP 144/89; PULSE 88
== END 2020-07-22 11:55 | disposition home or self-care (01) ==
LOC: EC 07:42
DX: U07.1 COVID-19 (principal); E11.9 Type 2 diabetes mellitus without complications; E78.5 Hyperlipidemia, unspecified; I10 Essential (primary) hypertension; G47.33 Obstructive sleep apnea (adult) (pediatric); Z79.4 Long term (current) use of insulin; Z79.899 Other long term (current) drug therapy; Z86.73 Personal history of transient ischemic attack (TIA), and cerebral infarction without residual deficits
CPT/HCPCS: 36415; 93005; 80053; 85025; 87635; 71045; 99285; 96374; J2405; 99284